=== PATIENT | male | born 1985 | race Caucasian/White ===

== ENCOUNTER 2020-03-27 22:11 | Inpatient (IN) | payer OTHER ==
[~2020-03-27] VITALS: Ht 180.3 cm; Wt 93.1 kg
[2020-03-27] MEDS ORDERED: ACETAMINOPHEN 325 MG TABLET PO PRN (23:30)
[2020-03-27] MEDS ORDERED: DiphenhydrAMINE HCL 25 MG CAPSULE PO ONE (23:45)
[2020-03-27] MEDS ORDERED: HALOPERIDOL 5 MG TABLET PO ONE (23:45)
[2020-03-27] MEDS ORDERED: LORazepam 2 MG TABLET PO ONE (23:45)
[2020-03-28] MEDS ORDERED: HALOPERIDOL LACTATE 5 MG/ML VIAL IM ONE ×2 (00:30→21:15)
[2020-03-28] MEDS ORDERED: DiphenhydrAMINE HCL 50 MG/ML VIAL IM ONE ×2 (00:30→21:15)
[2020-03-28] MEDS ORDERED: LORazepam 2 MG/ML VIAL IM ONE ×2 (00:30→21:15)
[2020-03-28 01:08] LABS: COVID AG,FIA SOURCE NASOPHARYNGEAL
[2020-03-28 02:10] VITALS: BP 118/57
[2020-03-28] MEDS ORDERED: ACETAMINOPHEN 325 MG TABLET PO PRN (04:45)
[2020-03-28] MEDS ORDERED: ONDANSETRON HCL 4 MG/2 ML VIAL IVP PRN (04:45)
[2020-03-28] MEDS: OLANZapine 10 MG RAPDIS TABLET PO SCH ×3 (11:00→21:00)
[2020-03-28 11:34] LABS: BASOPHILS % (AUTO) 0.5 % (0.0-2.0); EOSINOPHILS % (AUTO) 0.7 % (1.0-6.0); HEMATOCRIT 40.8 % (41-53); HEMOGLOBIN 13.6 g/dL (13.5-17.5); LYMPHOCYTES % (AUTO) 23.6 % (22.0-44.0); MEAN CORPUSCULAR HEMOGLOBIN 30.9 pg (26.0-34.0); MEAN CORPUSCULAR HGB CONC 33.3 G/dL (31.0-37.0); MEAN CORPUSCULAR VOLUME 93 fL (80-100); MONOCYTES # (AUTO) 0.8 K/uL (0.1-1.0); NEUTROPHILS # (AUTO) 5.6 K/uL (1.8-7.7); NEUTROPHILS % (AUTO) 66.2 % (40.0-70.0); PLATELET COUNT (AUTO) 259 K/uL (150-450); RED CELL DISTRIBUTION WIDTH 13.2 % (11.5-14.5)
[2020-03-28 11:50] LABS: ANION GAP 7 mmol/L (8-16); CALCIUM, TOTAL 9.1 mg/dL (8.8-10.5); CARBON DIOXIDE 29 mmol/L (22-29); CHLORIDE 104 mmol/L (98-107); CREATININE 0.88 mg/dL (0.60-1.30); GLOMERULAR FILTR. RATE CALC > 60 mL/min (>60); GLUCOSE,RANDOM 80 mg/dL (70-110); SODIUM SERUM 140 mmol/L (136-145); UREA NITROGEN, BLOOD 14 mg/dL (7-18)
[2020-03-28 11:57] LABS: ALANINE AMINOTRANSFERASE 29 U/L (12-78); ALBUMIN 3.5 g/dL (3.4-5.0); ALKALINE PHOSPHATASE 68 U/L (46-116); ASPARTATE AMINOTRANSFERASE 37 U/L (15-37); BILIRUBIN,TOTAL 0.5 mg/dL (0.1-1.0); TOTAL PROTEIN, SERUM 6.7 g/dL (6.4-8.2)
[2020-03-28] MEDS: ENOXAPARIN SODIUM 40 MG/0.4 ML PF SYRINGE SQ SCH (12:19)
[2020-03-28 13:28] LABS: AMPHET/METH SCREEN,URINE NEGATIVE (NEGATIVE); BARBITURATE SCREEN, URINE NEGATIVE (NEGATIVE); BENZODIAZEPINES SCREEN,URINE NEGATIVE (NEGATIVE); CANNABINOID SCREEN,URINE NEGATIVE (NEGATIVE); COCAINE SCREEN,URINE NEGATIVE (NEGATIVE); METHADONE SCREEN, URINE NEGATIVE (NEGATIVE); OPIATE SCREEN,URINE NEGATIVE (NEGATIVE); PHENCYCLIDINE SCREEN,URINE NEGATIVE (NEGATIVE)
[2020-03-28] MEDS: TraZODone HCL 100 MG TABLET PO SCH (20:36)
[2020-03-28] MEDS ORDERED: DiphenhydrAMINE HCL 50 MG/ML VIAL ONE (21:05)
[2020-03-28] MEDS ORDERED: HALOPERIDOL LACTATE 5 MG/ML VIAL ONE (21:05)
[2020-03-28] MEDS ORDERED: LORazepam 2 MG/ML VIAL ONE (21:06)
[2020-03-28 22:09] VITALS: BP 103/53
[2020-03-29 07:58] VITALS: BP 92/55
[2020-03-29] MEDS: OLANZapine 10 MG RAPDIS TABLET PO SCH ×2 (08:12→20:09)
[2020-03-29] MEDS: ENOXAPARIN SODIUM 40 MG/0.4 ML PF SYRINGE SQ SCH (08:13)
[2020-03-29] MEDS ORDERED: HALOPERIDOL LACTATE 5 MG/ML VIAL ONE (14:40)
[2020-03-29] MEDS ORDERED: LORazepam 2 MG/ML VIAL ONE (14:40)
[2020-03-29] MEDS ORDERED: DiphenhydrAMINE HCL 50 MG/ML VIAL ONE (14:41)
[2020-03-29] MEDS ORDERED: DiphenhydrAMINE HCL 50 MG/ML VIAL IM ONE (15:15)
[2020-03-29] MEDS ORDERED: HALOPERIDOL LACTATE 5 MG/ML VIAL IM ONE (15:15)
[2020-03-29] MEDS ORDERED: LORazepam 2 MG/ML VIAL IM ONE (15:15)
[2020-03-29 20:00] VITALS: BP 137/69
[2020-03-29] MEDS: TraZODone HCL 100 MG TABLET PO SCH (20:09)
[2020-03-30] MEDS ORDERED: ZOLPIDEM TARTRATE 5 MG TABLET PO ONE (02:30)
[2020-03-30 04:02] VITALS: BP 114/60
[2020-03-30] MEDS ORDERED: DiphenhydrAMINE HCL 50 MG/ML VIAL ONE (07:16)
[2020-03-30] MEDS ORDERED: HALOPERIDOL LACTATE 5 MG/ML VIAL ONE (07:17)
[2020-03-30] MEDS ORDERED: LORazepam 2 MG/ML VIAL ONE (07:17)
[2020-03-30] MEDS ORDERED: DiphenhydrAMINE HCL 50 MG/ML VIAL IM ONE (07:30)
[2020-03-30] MEDS ORDERED: LORazepam 2 MG/ML VIAL IM ONE (07:30)
[2020-03-30] MEDS ORDERED: HALOPERIDOL LACTATE 5 MG/ML VIAL IM ONE (07:30)
[2020-03-30] MEDS: OLANZapine 10 MG RAPDIS TABLET PO SCH ×2 (08:28→18:09)
[2020-03-30] MEDS: ENOXAPARIN SODIUM 40 MG/0.4 ML PF SYRINGE SQ SCH (08:29)
[2020-03-30 08:57] VITALS: BP 116/68
[2020-03-30] MEDS: TraZODone HCL 100 MG TABLET PO SCH (18:09)
[2020-03-30 20:58] VITALS: BP 128/74
[2020-03-30] MEDS ORDERED: ZOLPIDEM TARTRATE 10 MG TABLET PO PRN (21:15)
[2020-03-31 03:54] VITALS: BP 106/57
[2020-03-31 07:50] VITALS: BP 134/83
[2020-03-31] MEDS: OLANZapine 10 MG RAPDIS TABLET PO SCH (08:05)
[2020-03-31] MEDS: ENOXAPARIN SODIUM 40 MG/0.4 ML PF SYRINGE SQ SCH (08:05)
[2020-03-31 17:34] VITALS: BP 155/100
== END 2020-03-31 19:00 | DRG 885 ==
LOC: EMS 22:11 → 6S 03-28 00:07
PROVIDERS: ADMIT Internal Medicine; ATTEND Internal Medicine
DX: F23 Brief psychotic disorder (principal); R45.1 Restlessness and agitation; F41.9 Anxiety disorder, unspecified; F15.90 Other stimulant use, unspecified, uncomplicated; Z20.822 Contact with and (suspected) exposure to COVID-19; Z87.891 Personal history of nicotine dependence; F19.10 Other psychoactive substance abuse, uncomplicated
CPT/HCPCS: 87426; 99291; G0480; J1200; J1630; J1650; J2060